=== PATIENT | male | born 1985 | race Caucasian/White ===

== ENCOUNTER 2018-01-18 19:33 | Emergency (ER) | payer SELFPAY ==
[~2018-01-18] VITALS: Ht 167.6 cm; Wt 80.7 kg
[2018-01-18 19:38] VITALS: Ht 167.6 cm; Wt 80.7 kg
[2018-01-18 20:19] VITALS: BP 144/78
== END 2018-01-18 20:19 | disposition home or self-care (01) ==
LOC: ED 19:33
DX: H72.92 Unspecified perforation of tympanic membrane, left ear (principal)